=== PATIENT | male | born 1945 | race Caucasian/White ===

== ENCOUNTER → 2019-12-17 | Outpatient (CLI) | payer OTHER ==
[~2019-12-17] VITALS: Ht 190.5 cm; Wt 141.1 kg
[~2019-12-17] MED LIST: ALOGLIPTIN25 MG PO; AZELASTINE137 MCG/0. NASAL; FISH OIL 1,001000 M2 PO; FISH OIL 1,2001 EACH PO; FLOMAX0.4 MG PO; GLUCOPHAGE1000 MG PO; HYDROCHLOROTH12.5 M2 PO; JARDIANCE10 MG PO; KETOCONAZOLE15 GM TOP; LIPITOR10 MG PO; NEURONTIN300 MG PO; NORVASC5 M1 PO; POTASSIUM600 MG PO; PRINIVIL20 M1 PO; SINGULAIR 10 MG10 M1 PO; SUPER THERAVIT1 EACH PO; TROSPIUM CHLORI20 MG PO
[2019-12-17 09:46] VITALS: BP 117/66
[2019-12-17 09:56] LABS: HEMATOCRIT 42.8 % (42.0-52.0); HEMOGLOBIN 14.1 gm/dL (14.0-18.0); MCH 30.4 pg (26.0-34.0); RBC 4.65 mil/uL (4.50-6.00); RDW 14.3 % (10.5-14.5); WBC 6.5 thou/uL (4.0-11.0)
[2019-12-17 10:06] LABS: CALCIUM 9.7 mg/dL (8.5-10.1); CREATININE 1.1 mg/dL (0.7-1.3); POTASSIUM 3.9 mmol/L (3.5-5.1)
--- NOTE | 2019-12-17 16:24 | EKG ---
[place] [address] [place] [address] ELECTROCARDIOGRAM REPORT Name: COURTNEY VIZCAINO Room #: REG SANDEEP Medina#: [id number] Admission: 12/17/19 Attend Phys: Torito Narvaez Discharge: Date of : 49 Report #: [id number] THIS REPORT FOR: //name// [facility] Test Date: 2019-12-17 Test Time: 09:44:46 Pat Name: COURTNEY VIZCAINO Department: Room: Gender: Improvement Coordinator: [facility] : 1945 Requested By: Harshal Green Order Number: [id number] MD: Tray Kwok Measurements Intervals [place] Rate: 94 P: 19 [place]: 198 QRS: 6 QRSD: 182 T: -3 QT: 426 QTc: 533 Interpretive Statements Sinus arrhythmia Multiple premature complexes, vent & supraven Right bundle branch block No previous ECG available for comparison Electronically Signed On 12-17-2019 16:23:33 [employer] by Tray Kwok [email or web address] <ELECTRONICALLY SIGNED> By: Tray Kwok MD, [facility] 12/17/19 1623 0944 0944 Tray Kwok MD, FACC /EPI
--- NOTE | 2019-12-22 21:16 | CATHLAB ---
[facility] [place] [address] INVASIVE PROCEDURE REPORT Name: COURTNEY VIZCAINO Room #: REG SANDEEP Medina#: [id number] Admission: 12/17/19 Attend Phys: Torito Narvaez Discharge: Date of : 49 Report #: [id number] THIS REPORT FOR: cc: SUHA - Family physician unknown SUHA - Family physician unknown Torito Narvaez MD ~ THIS REPORT FOR: //name// APPROVED REPORT Study performed: 12/17/2019 10:33:48 Patient Details Patient Status: Out-Patient Room #: The patient is a 74 year-old male Event Personnel Torito Narvaez Ornamental Metalwork Designer, Woodrow Murray RN, Da Banks Jackson, Sherra RTTaylor Monitor Procedures Performed Art Access - R femoral artery* Left Heart Cath w/or w/o Coronaries [id number] [facility] [id number] Initial Mod Sed Same Phys/QHP Gr 610797 33065 Mod Sed Same Phys/QHP Ea 546200 Hemostasis with Manual pressure, supervision of conscious sedation Indication Positive stress test, Chest pain Procedure Narrative The Right Groin^ was infiltrated with 1% Lidocaine subcutaneous anesthesia. A PINNACLE 4FR Sheath #[id number] sheath was inserted into the RFA^. Coronary angiography was performed using coronary diagnostic catheters. The right coronary system was accessed and visualized with a JR4 catheter. The left coronary system was accessed and visualized with a JL5 catheter. The left ventricle was accessed and visualized with a Pigtail catheter. Hemostasis was obtained with manual pressure following sheath removal without any complications. The patient tolerated the procedure well and there were no complications associated with the procedure. There was no hematoma. Intraoperative Conscious Sedation Sedation start time: 1114 Case end Time: [facility] [address] [place] [address] INVASIVE PROCEDURE REPORT Name: COURTNEY VIZCAINO Room #: REG [facility]#: [id number] Admission: 12/17/19 Attend Phys: Torito Sanz Discharge: Date of : 49 Report #: [id number] Versed 2 mg Fluoro Time: 5.08 minutes Dose: DAP 7496.30 cGycm2 1058 mGy Contrast Type and Amount: Omnipaque 55 ml Coronary Angiography The patient's coronary anatomy is left dominant. Diagnostic Cath Left Main Large-caliber vessel of normal origin. Short in length. Bifurcates into left anterior descending left circumflex coronary arteries. No significant obstructive lesions. LAD Moderate to large caliber type II LAD which courses in the anterior interventricular sulcus with luminal irregularities noted. He gives her susceptible and diagonal branches as it courses towards the apex. In its midportion the vessel rapidly tapers to a string size vessel and terminates at the apex. Although there are luminal irregularities no significant obstructive lesions are noted Diagonal 1 Small insignificant caliber vessel without high-grade lesions Circumflex Large-caliber dominant vessel which courses in the AV groove posteriorly giving rise to moderate caliber posterior descending artery. There is normal irregularities in his course. First marginal branch arises quite early and courses on the lateral and anterolateral wall without high-grade lesions present. The circumflex continues on second marginal branch is of moderate caliber free of high-grade disease also. Several posterior wall branches which are small in size are noted in the posterior descending artery arises as stated above OM1 Moderate caliber vessel coursing along the last with of the heart free of high-grade disease. OM2 Moderate to large caliber vessel coursing on the lateral x-ray heart extending towards the apex free of high-grade disease OM3 In combination with 2 smaller posterior wall branches that are free of high-grade disease L PDA Moderate caliber dominant vessel coursing in the posterior interventricular sulcus 40 apex. It has luminal irregularities but no high-grade lesions present Right Coronary Moderate caliber nondominant vessel coursing in the AV groove with atrial and one moderate caliber vessel of normal originright ventricular branch free of high grae lesions. Left Ventriculography Left Ventriculography was not performed. [facility] [address] [place] [address] INVASIVE PROCEDURE REPORT Name: COURTNEY VIZCAINO Room #: REG NIKKI Medina#: [id number] Admission: 12/17/19 Attend Phys: Torito Sanz Discharge: Date of : 49 Report #: [id number] Hemodynamics The aortic pressure is 111/70 mmHg with a mean of 77 mmHg. The left ventricular pressure is 132/53 mmHg with a mean of mmHg. The left ventricular end diastolic pressure is 90 mmHg. Conclusion 1. Essentially normal coronary arteries with only luminal irregularities noted 2. Normal hemodynamics Recommendations Cardiac Risk Reduction Program Medical Therapy <ELECTRONICALLY SIGNED> By: Torito Narvaez MD 12/22/192114 14 14 Torito Narvaze MD /INF
== END | disposition home or self-care (01) ==
LOC: CATH 09:08
PROVIDERS: Internal Medicine Cardiovascular Disease
DX: R94.39 Abnormal result of other cardiovascular function study (principal); R07.9 Chest pain, unspecified; I25.10 Atherosclerotic heart disease of native coronary artery without angina pectoris; I10 Essential (primary) hypertension; E11.9 Type 2 diabetes mellitus without complications; J44.9 Chronic obstructive pulmonary disease, unspecified; E78.5 Hyperlipidemia, unspecified; Z98.890 Other specified postprocedural states; Z79.899 Other long term (current) drug therapy; Z87.891 Personal history of nicotine dependence